=== PATIENT | female | born 1930 | race Caucasian/White ===

== ENCOUNTER 2018-08-08 11:30 | Emergency (ER) | payer MEDICARE, OTHER ==
[~2018-08-08] VITALS: Ht 160 cm; Wt 65.5 kg
[2018-08-08 11:40] VITALS: TEMP 97.7
[2018-08-08] MEDS ORDERED: ZOFRAN ODT8 MG PO (11:57)
[2018-08-08] MEDS ORDERED: PRILOSEC 20MG20 MG PO (12:32)
[2018-08-08] MEDS ORDERED: CLARITIN 1010 MG/TAB PO (12:32)
[2018-08-08] MEDS ORDERED: SYNTHROID0.1 MG/TAB PO (12:32)
[2018-08-08] MEDS ORDERED: OMEGA-31 SGL PO (12:33)
[2018-08-08] MEDS ORDERED: CALCIUM 600 PLU1 TAB PO (12:33)
[2018-08-08] MEDS ORDERED: ICAPS TABLET1 EACH PO (12:33)
[2018-08-08] MEDS ORDERED: CELEBREX 200MG200 MG PO (12:34)
[2018-08-08] MEDS ORDERED: MYRBETR25MG PO (12:34)
[2018-08-08] MEDS ORDERED: CENTRUM SILVER1 TAB (12:34)
[2018-08-08] MEDS ORDERED: NEURONTIN300 MG/CAP PO (12:34)
[2018-08-08 13:00] VITALS: BP 174/81; PULSE 67
== END 2018-08-08 13:01 | disposition home or self-care (01) ==
LOC: COL.ER 11:30
DX: S06.0X0A Concussion without loss of consciousness, initial encounter (principal); W19.XXXA Unspecified fall, initial encounter; Y92.410 Unspecified street and highway as the place of occurrence of the external cause